=== PATIENT | male | born 1980 | race Two or more races ===

== ENCOUNTER → 2022-10-28 08:49 | Outpatient (BNVA) | payer SELFPAY | PROVIDERS: PCP Pediatrics; Visit Provider Physician Assistant Medical | DX: Z02.79 Encounter for issue of other medical certificate (principal) ==

== ENCOUNTER 2023-02-06 03:52 | Emergency (ER) | payer SELFPAY ==
--- NOTE | ~2023-02-06 | XR_ITS ---
EXAMINATION: XR CHEST CLINICAL INFORMATION: Shortness of breath COMPARISON: None available. TECHNIQUE: Frontal view of the chest was obtained. FINDINGS: Diffuse bronchial wall thickening. Streaky opacities in the lower lungs bilaterally. No pleural effusion or pneumothorax. Normal heart size and pulmonary vascularity. No acute osseous abnormalities. XR/XR chest 1V IMPRESSION: * Diffuse bronchial wall thickening suggestive of bronchitis. * Streaky opacities in the lower lungs bilaterally could represent subsegmental atelectasis or infiltrate.
--- NOTE | 2023-02-06 03:57 | ECG_ITS ---
Test Reason : SOB/CHEST PAIN Blood Pressure : / mmHG Vent. Rate : 093 BPM Atrial Rate : 093 BPM P-R Int : 144 ms QRS Dur : 096 ms QT Int : 386 ms P-R-T Axes : 070 005 100 degrees QTc Int : 479 ms Normal sinus rhythm Possible Left atrial enlargement Minimal voltage criteria for LVH, may be normal variant ( [place] product ) Nonspecific T wave abnormality Prolonged QT Abnormal ECG No previous ECGs available Referred By: Generic ED Physician Electronically Signed By:TAMARA PACHECO MD
[2023-02-06 04:08] VITALS: BP 198/129; PULSE 93; RESP 19; TEMP 36.6; O2SAT 94; BMI 31.3
--- NOTE | 2023-02-06 04:11 | ED_ITS ---
HPI - SOB/Dyspnea General Chief Complaint: Dyspnea Stated Complaint: SoB, abd pain Time Seen by Provider: 02/06/23 04:09 Source: patient Mode of arrival: ambulatory Limitations: no limitations History of Present Illness HPI Narrative: Patient otherwise healthy been having cough wheezing for last 1 month, got worse in last 1 week tonight with patient fell pain in the left ribs while coughing. Patient does get this wheezing and itching of the face whenever he cuts some kind of trees. Feel chest tight no leg swelling or edema patient does have white coat hypertension but has not checked his blood pressure. On arrival patient's blood pressure was 198/129 with pulse rate of 93 Related Data Previous Rx's Medication Instructions Recorded albuterol sulfate 90 mcg/actuation 2 puff inhalation Q4-6H PRN 02/06/23 aerosol inhaler (ProAir HFA) shortness of breath or wheezing #8.5 grams cefuroxime axetil 500 mg tablet 500 mg PO BID #20 tabs 02/06/23 doxycycline hyclate 100 mg tablet 100 mg PO BID #20 tabs 02/06/23 lisinopril 20 mg tablet 20 mg PO DAILY #30 tabs 02/06/23 prednisone 20 mg tablet 40 mg PO DAILY #10 tabs 02/06/23 Allergies Allergy/AdvReac Type Severity Reaction Status Date / Time No Known Allergies Allergy Unverified 05/11/20 19:46 [No Known Allergies*] Review of Systems Review of Systems: Yes all other systems are reviewed and are negative [facility], [facility] Social History Social History Alcohol intake: current Smoked in Last 30 Days: Yes Use of substances other than those prescribed or required for medical reasons: No Advance Directives: No Advance Directives Information Provided: Yes Physical Exam Vital Signs: Vital Signs: Last Vital Signs Temp 98.3 F 02/06/23 06:16 Pulse 86 02/06/23 06:16 Resp 20 02/06/23 06:16 BP 184/108 H 02/06/23 06:16 Pulse Ox 93 02/06/23 06:16 O2 Del Method Room Air 02/06/23 06:16 BMI result Body Mass Index 31.3 Appearance: Alert. Oriented X3. No acute distress. Eyes: No pallor or icterus ENT: Pharynx normal. Oral Mucosa moist Neck: Normal inspection. Neck supple. CVS: Normal heart rate and rhythm. Pulses normal. Respiratory: No respiratory distress. Equal air entry bilateral, prolonged expiration with wheezing Abdomen: Soft and nontender. Bowel sounds are present, no mass palpable, no CVA tenderness Skin: Skin warm and dry. Normal skin color. Normal skin turgor. Extremities: No lower extremity edema. No calf tenderness Neuro: Oriented X 3. No motor deficit. Medications Administered Discontinued Medications Generic Name Dose Route Start Last Admin Trade Name Robertq PRN Reason Stop Dose Admin Albuterol Sulfate 4 puff 02/06/23 04:21 02/06/23 04:37 Albuterol Sulfate 90 Mcg 8 Gm Inhaler INHALE 02/06/23 04:22 4 puff ONCE ONE Administration Cefuroxime Axetil 500 mg 02/06/23 06:26 02/06/23 06:38 Cefuroxime Axetil 500 Mg Tablet PO 02/06/23 06:27 500 mg ONCE ONE Administration Doxycycline Monohydrate 100 mg 02/06/23 06:26 02/06/23 06:38 Doxycycline Monohydrate 100 Mg Capsule PO 02/06/23 06:27 100 mg ONCE ONE Administration Lisinopril 20 mg 02/06/23 06:37 02/06/23 06:41 Lisinopril 20 Mg Tablet PO 02/06/23 06:38 20 mg ONCE ONE Administration Protocol Prednisone 60 mg 02/06/23 06:26 02/06/23 06:38 Prednisone 20 Mg Tablet PO 02/06/23 06:27 60 mg ONCE ONE Administration Medical Decision Making Medical Decision Making [facility] Narrative: Patient with white coat hypertension possible has essential hypertension also has cardiogram showed LVH. Does have bronchitis likely allergic from trees. Give antibiotic prednisone blood pressure medication advised to follow with PCP Lab Data [facility] Lab Attestation statement: I reviewed the patient's lab results. 02/06/23 04:14 02/06/23 04:14 Labs: Lab Results 02/06/23 02/06/23 02/06/23 Range/Units 04:14 04:14 04:14 WBC 15.4 H (4.8-10.8) X10*3/uL RBC 6.01 H (4.60-5.80) X10*6/uL Hgb 15.6 (14.0-18.0) g/dl Hct 48.9 (42.0-52.0) % MCV 81.4 (80.0-98.0) fL MCH 26.0 L (27.0-33.0) pg MCHC 31.9 (31.0-36.0) g/dl RDW 13.4 (11.0-16.0) % Plt Count 282 (160-400) X10*3/uL MPV 9.5 (9.4-12.4) fL Immature Gran % (Auto) 0.3 (0.0-0.4) % Neut % (Auto) 77.2 H (45-73) % Lymph % (Auto) 14.9 L (20-40) % [place] % (Auto) 5.5 (2-11) % Eos % (Auto) 1.6 (0-4) % Baso % (Auto) 0.5 (0-2) % Lymph # (Auto) 2.3 (1.2-4.9) X10*3/uL [place] # (Auto) 0.8 (0.1-1.2) X10*3/uL Eos # (Auto) 0.2 (0.0-0.4) X10*3/uL Baso # (Auto) 0.1 (0.0-0.2) X10*3/uL Abs Immat Gran (auto) 0.05 H (0.00-0.03) X10*3/uL Absolute Neuts (auto) 11.9 H (2.0-8.3) x10*3/uL Absolute Nucleated RBC 0.000 (0.0-0.012) X10*3/uL Nucleated RBC % (auto) 0.0 (0.0-0.2) /100WBC Sodium 138 (135-145) mmol/L Potassium 4.3 (3.3-5.1) mmol/L Chloride 104 (96-108) mmol/L Carbon Dioxide 25 (22-29) mmol/L Anion Gap 13 (12-20) BUN 12 (9-16) mg/dL Creatinine 1.03 (0.5-1.4) mg/dL Estim Creat Clear Calc 98.3 Estimated GFR > 60 Random Glucose 120 H (60-115) mg/dL Calcium 9.4 (8.4-10.2) mg/dL Total Bilirubin 0.7 (0.0-1.0) mg/dL AST 20 (5-37) U/L ALT 19 (0-40) U/L Alkaline Phosphatase 107 (39-117) U/L Troponin I High Sens 4.3 (<3.5-35.0) ng/L B-Natriuretic Peptide (<100) pg/mL Total Protein 8.5 H (6.5-8.0) g/dL Albumin 4.5 (3.5-5.0) g/dL 02/06/23 Range/Units 04:14 WBC (4.8-10.8) X10*3/uL RBC (4.60-5.80) X10*6/uL Hgb (14.0-18.0) g/dl Hct (42.0-52.0) % MCV (80.0-98.0) fL MCH (27.0-33.0) pg MCHC (31.0-36.0) g/dl RDW (11.0-16.0) % Plt Count (160-400) X10*3/uL MPV (9.4-12.4) fL Immature Gran % (Auto) (0.0-0.4) % Neut % (Auto) (45-73) % Lymph % (Auto) (20-40) % [place] % (Auto) (2-11) % Eos % (Auto) (0-4) % Baso % (Auto) (0-2) % Lymph # (Auto) (1.2-4.9) X10*3/uL [place] # (Auto) (0.1-1.2) X10*3/uL Eos # (Auto) (0.0-0.4) X10*3/uL Baso # (Auto) (0.0-0.2) X10*3/uL Abs Immat Gran (auto) (0.00-0.03) X10*3/uL Absolute Neuts (auto) (2.0-8.3) x10*3/uL Absolute Nucleated RBC (0.0-0.012) X10*3/uL Nucleated RBC % (auto) (0.0-0.2) /100WBC Sodium (135-145) mmol/L Potassium (3.3-5.1) mmol/L Chloride (96-108) mmol/L Carbon Dioxide (22-29) mmol/L Anion Gap (12-20) BUN (9-16) mg/dL Creatinine (0.5-1.4) mg/dL Estim Creat Clear Calc Estimated GFR Random Glucose (60-115) mg/dL Calcium (8.4-10.2) mg/dL Total Bilirubin (0.0-1.0) mg/dL AST (5-37) U/L ALT (0-40) U/L Alkaline Phosphatase (39-117) U/L Troponin I High Sens (<3.5-35.0) ng/L B-Natriuretic Peptide 143 H (<100) pg/mL Total Protein (6.5-8.0) g/dL Albumin (3.5-5.0) g/dL Discharge Plan Discharge Clinical Impression: Acute bronchitis, Hypertension Patient Disposition: Home, Self-Care Instructions: Acute Bronchitis (ED), Hypertension (ED) Additional Instructions: Stop smoking You might be allergic to some of the trees Keep a distance/precautions when you are near those trees Prednisone, antibiotic and inhaler as prescribed Decrease salt and caffeine intake Medication as prescribed for high blood pressure normal blood pressure should be less than 135/85 I checked the blood pressure before you take the medicine in the morning and before you go to bed Follow with PCP Prescriptions: New prednisone 20 mg tablet 40 mg PO DAILY Qty: 10 0RF cefuroxime axetil 500 mg tablet 500 mg PO BID Qty: 20 0RF albuterol sulfate [ProAir HFA] 90 mcg/actuation HFA aerosol inhaler 2 puff inhalation Q4-6H PRN (Reason: shortness of breath or wheezing) Qty: 8.5 0RF doxycycline hyclate 100 mg tablet 100 mg PO BID Qty: 20 0RF lisinopril 20 mg tablet 20 mg PO DAILY Qty: 30 0RF
[2023-02-06 04:18] LABS: Basophils Absolute Auto 0.1 X10*3/uL (0.0-0.2); Basophils Percent Auto 0.5 % (0-2); Eosinophils Absolute Auto 0.2 X10*3/uL (0.0-0.4); Eosinophils Percent Auto 1.6 % (0-4); Hematocrit 48.9 % (42.0-52.0); Hemoglobin 15.6 g/dl (14.0-18.0); Imm Gran Abs Auto 0.05 X10*3/uL (0.00-0.03); Imm Gran Pct Auto 0.3 % (0.0-0.4); Lymphocytes Absolute Auto 2.3 X10*3/uL (1.2-4.9); Lymphocytes Percent Auto 14.9 % (20-40); MANUAL DIFF FLAG NO; Mean Corpuscular HGB Conc 31.9 g/dl (31.0-36.0); Mean Corpuscular Volume 81.4 fL (80.0-98.0); Mean Platelet Volume 9.5 fL (9.4-12.4); Monocytes Absolute Auto 0.8 X10*3/uL (0.1-1.2); Monocytes Percent Auto 5.5 % (2-11); Neutrophils Absolute Auto 11.9 x10*3/uL (2.0-8.3); Neutrophils Percent Auto 77.2 % (45-73); Platelet Count 282 X10*3/uL (160-400); Red Blood Count 6.01 X10*6/uL (4.60-5.80); Red Cell Distribution Width 13.4 % (11.0-16.0); White Blood Count 15.4 X10*3/uL (4.8-10.8)
[2023-02-06 04:32] LABS: Alanine Aminotransferase 19 U/L (0-40); Albumin Level 4.5 g/dL (3.5-5.0); Alkaline Phosphatase 107 U/L (39-117); Anion Gap 13 (12-20); Aspartate Amino Transferase 20 U/L (5-37); Bilirubin Total 0.7 mg/dL (0.0-1.0); Blood Urea Nitrogen 12 mg/dL (9-16); Calcium 9.4 mg/dL (8.4-10.2); Carbon Dioxide 25 mmol/L (22-29); Chloride 104 mmol/L (96-108); Creatinine Clr Calc Pharmacy 98.3; Estimated Glomerular Filt Rate > 60; Glucose Random 120 mg/dL (60-115); Potassium 4.3 mmol/L (3.3-5.1); Sodium 138 mmol/L (135-145); Total Protein 8.5 g/dL (6.5-8.0)
[2023-02-06 04:37] LABS: Troponin-I High Sensitivity 4.3 ng/L (<3.5-35.0)
[2023-02-06] MEDS: Albuterol Sulfate 90 MCG 8 GM INHALER 4 PUFF INHALE (04:37)
[2023-02-06 04:46] LABS: B Type Natriuretic Peptide 143 pg/mL (<100)
--- NOTE | 2023-02-06 05:15 | PC.NURSE ---
pt reassessd after the adminstration of medications, reported mild sob
[2023-02-06 06:16] VITALS: BP 184/108; PULSE 86; RESP 20; TEMP 36.8; O2SAT 93
[2023-02-06] MEDS: Doxycycline Monohydrate 100 MG CAPSULE PO (06:38)
[2023-02-06] MEDS: predniSONE 20 MG TABLET 60 MG PO (06:38)
[2023-02-06] MEDS: lisinopriL 20 MG TABLET PO (06:41)
== END 2023-02-06 07:34 | disposition home or self-care (01) ==
PROVIDERS: Emergency Provider Internal Medicine
DX: J40 Bronchitis, not specified as acute or chronic (principal); R07.89 Other chest pain; R06.02 Shortness of breath; I10 Essential (primary) hypertension; Z79.899 Other long term (current) drug therapy
CPT/HCPCS: 36415; 71045; 80053; 83880; 84484; 85025; 93005; 99284

== ENCOUNTER 2023-07-27 23:25 | Emergency (ER) | payer OTHER, SELFPAY ==
--- NOTE | 2023-07-27 | ECG_ITS ---
Test Reason : LEFT SIDED PAIN Blood Pressure : / mmHG Vent. Rate : 091 BPM Atrial Rate : 091 BPM P-R Int : 168 ms QRS Dur : 098 ms QT Int : 384 ms P-R-T Axes : 067 012 110 degrees QTc Int : 472 ms Normal sinus rhythm Possible Left atrial enlargement Minimal voltage criteria for LVH, may be normal variant ( [place] product ) T wave abnormality, consider lateral ischemia Prolonged QT Abnormal ECG When compared with ECG of 06-FEB-2023 03:58, No significant change was found Referred By: Generic ED Physician Electronically Signed By:ADRYAN MALCOLM
[2023-07-27 23:37] VITALS: BP 191/112; PULSE 98; RESP 16; TEMP 36.7; O2SAT 96; BMI 30.7
[2023-07-28 02:01] VITALS: BP 158/87; PULSE 89; RESP 16; O2SAT 96
[2023-07-28 02:20] LABS: MANUAL DIFF FLAG NO
[2023-07-28 02:22] LABS: Basophils Absolute Auto 0.1 X10*3/uL (0.0-0.2); Basophils Percent Auto 0.6 % (0-2); Eosinophils Absolute Auto 0.2 X10*3/uL (0.0-0.4); Eosinophils Percent Auto 1.5 % (0-4); Hematocrit 42.8 % (42.0-52.0); Hemoglobin 14.2 g/dl (14.0-18.0); Imm Gran Abs Auto 0.03 X10*3/uL (0.00-0.03); Imm Gran Pct Auto 0.2 % (0.0-0.4); Lymphocytes Absolute Auto 2.5 X10*3/uL (1.2-4.9); Lymphocytes Percent Auto 20.4 % (20-40); Mean Corpuscular HGB Conc 33.2 g/dl (31.0-36.0); Mean Corpuscular Hemoglobin 26.6 pg (27.0-33.0); Mean Corpuscular Volume 80.1 fL (80.0-98.0); Monocytes Absolute Auto 0.8 X10*3/uL (0.1-1.2); Monocytes Percent Auto 6.2 % (2-11); Neutrophils Absolute Auto 8.8 x10*3/uL (2.0-8.3); Neutrophils Percent Auto 71.1 % (45-73); Platelet Count 253 X10*3/uL (160-400); Red Blood Count 5.34 X10*6/uL (4.60-5.80); Red Cell Distribution Width 13.5 % (11.0-16.0); White Blood Count 12.4 X10*3/uL (4.8-10.8)
[2023-07-28 02:38] LABS: Alanine Aminotransferase 17 U/L (0-40); Albumin Level 4.2 g/dL (3.5-5.0); Alkaline Phosphatase 102 U/L (39-117); Anion Gap 13 (12-20); Aspartate Amino Transferase 21 U/L (5-37); Bilirubin Total 0.4 mg/dL (0.0-1.0); Blood Urea Nitrogen 11 mg/dL (9-16); Calcium 9.4 mg/dL (8.4-10.2); Carbon Dioxide 25 mmol/L (22-29); Chloride 105 mmol/L (96-108); Creatinine Clr Calc Pharmacy 110.2; Estimated Glomerular Filt Rate > 60; Glucose Random 126 mg/dL (60-115); Potassium 3.8 mmol/L (3.3-5.1); Sodium 139 mmol/L (135-145); Total Protein 8.1 g/dL (6.5-8.0)
--- NOTE | 2023-07-28 02:41 | ED.GENADULT ---
HPI - General Adult General Chief complaint: General Medical Stated complaint: High BP Time Seen by Provider: 07/28/23 02:41 History of Present Illness HPI narrative: The patient is a 42-year-old male who says that he was seen at the emergency room here several months ago and was found to have high blood pressure. He was prescribed lisinopril 20 mg daily. This seemed to help his blood pressure. Apparently he did well enough that he felt he could go off lisinopril. At the same time he stop smoking and he thought that that might help his high blood pressure altogether. He stopped taking lisinopril after about 2 weeks. Therefore he has not been on any blood pressure medications for the last couple of months. He has not checked his blood pressure for over a month. Tonight he had a vague sense that he felt unwell and checked his blood pressure and it was something like 200/100. He got concerned about this high blood pressure and came to the emergency room. No chest pain or shortness of breath. No headache. No other symptoms. Related Data Previous Rx's Medication Instructions Recorded albuterol sulfate 90 mcg/actuation 2 puff inhalation Q4-6H PRN 02/06/23 aerosol inhaler (ProAir HFA) shortness of breath or wheezing #8.5 grams cefuroxime axetil 500 mg tablet 500 mg PO BID #20 tabs 02/06/23 doxycycline hyclate 100 mg tablet 100 mg PO BID #20 tabs 02/06/23 lisinopril 20 mg tablet 20 mg PO DAILY #30 tabs 02/06/23 prednisone 20 mg tablet 40 mg (2 x 20 mg) PO DAILY #10 tabs 02/06/23 lisinopril 20 mg tablet 20 mg PO DAILY #30 tabs 07/28/23 Allergies Allergy/AdvReac Type Severity Reaction Status Date / Time No Known Allergies Allergy Unverified 05/11/20 19:46 [No Known Allergies*] Review of Systems Review of Systems: Yes all other systems are reviewed and are negative [facility] Social History Social History Alcohol intake: current Smoked in Last 30 Days: No Advance Directives: No Advance Directives Information Provided: No Physical Exam ED Vital Signs: Vital Signs - 24 hr 07/27/23 23:37 07/28/23 02:01 Temperature 98.0 F Pulse Rate 98 89 Respiratory Rate 16 16 Blood Pressure 191/112 H 158/87 H Pulse Oximetry 96 96 Oxygen Delivery Method Room Air Room Air BMI result Body Mass Index 30.7 Const Other: The patient is very vigorous looking 42-year-old who does not seem in acute distress. HENMT Other: Face is symmetrical. Tongue is midline. Mucous membranes moist. Eyes Other: Pupils are round equal, conjunctivae are clear, extraocular movements intact Neck Other: No JVD Resp Other: Lungs clear bilaterally Cardio Other: Regular rate and rhythm without murmur GI Other: Abdomen is soft nontender Skin Other: Skin is dry and unremarkable Neuro Other: Patient is awake and alert and appropriate. Speech is clear. Face symmetrical. Moving all 4 extremities normally. Patient is neurologically intact. Extrem Other: No peripheral edema. Medical Decision Making Medical Decision Making [facility] Narrative: The patient is a very pleasant 42-year-old who is here because of high blood pressure readings. He had been seen in the emergency room here a few months ago and was found to have high blood pressure was prescribed lisinopril but he stopped taking this medication a couple of weeks later because he thought his blood pressure was doing better. He has not followed up with a PCP. He does not have insurance currently. He seems to be in a bit of denial about having possible hypertension as a long-term condition. Clinically the patient looks entirely well. The patient had an EKG that I think shows something of an LVH pattern. The EKG is similar to his EKG earlier this year. Overall the patient looked tired he well I do not think he requires further testing. He was counseled that he really should take antihypertensive medication however. He still has about 2 weeks of lisinopril left in a pill bottle he brought with him that had been prescribed at his last ER visit several months ago. Have sent another prescription for it the same dose of lisinopril, 20 mg daily. He is strongly encouraged to continue daily lisinopril. He is additionally advised to work on getting health insurance and a PCP for ongoing care. Lab Data 07/28/23 02:11 07/28/23 02:11 Labs: Lab Results 07/28/23 Range/Units 02:11 WBC 12.4 H (4.8-10.8) X10*3/uL RBC 5.34 (4.60-5.80) X10*6/uL Hgb 14.2 (14.0-18.0) g/dl Hct 42.8 (42.0-52.0) % MCV 80.1 (80.0-98.0) fL MCH 26.6 L (27.0-33.0) pg MCHC 33.2 (31.0-36.0) g/dl RDW 13.5 (11.0-16.0) % Plt Count 253 (160-400) X10*3/uL MPV 10.0 (9.4-12.4) fL Immature Gran % (Auto) 0.2 (0.0-0.4) % Neut % (Auto) 71.1 (45-73) % Lymph % (Auto) 20.4 (20-40) % [place] % (Auto) 6.2 (2-11) % Eos % (Auto) 1.5 (0-4) % Baso % (Auto) 0.6 (0-2) % Lymph # (Auto) 2.5 (1.2-4.9) X10*3/uL [place] # (Auto) 0.8 (0.1-1.2) X10*3/uL Eos # (Auto) 0.2 (0.0-0.4) X10*3/uL Baso # (Auto) 0.1 (0.0-0.2) X10*3/uL Abs Immat Gran (auto) 0.03 (0.00-0.03) X10*3/uL Absolute Neuts (auto) 8.8 H (2.0-8.3) x10*3/uL Absolute Nucleated RBC 0.000 (0.0-0.012) X10*3/uL Nucleated RBC % (auto) 0.0 (0.0-0.2) /100WBC Sodium 139 (135-145) mmol/L Potassium 3.8 (3.3-5.1) mmol/L Chloride 105 (96-108) mmol/L Carbon Dioxide 25 (22-29) mmol/L Anion Gap 13 (12-20) BUN 11 (9-16) mg/dL Creatinine 0.88 (0.5-1.4) mg/dL Estim Creat Clear Calc 110.2 Estimated GFR > 60 Random Glucose 126 H (60-115) mg/dL Calcium 9.4 (8.4-10.2) mg/dL Total Bilirubin 0.4 (0.0-1.0) mg/dL AST 21 (5-37) U/L ALT 17 (0-40) U/L Alkaline Phosphatase 102 (39-117) U/L Troponin I High Sens 4.1 (<3.5-35.0) ng/L Total Protein 8.1 H (6.5-8.0) g/dL Albumin 4.2 (3.5-5.0) g/dL Discharge Plan Discharge Clinical Impression: Hypertension Patient Disposition: Home, Self-Care Instructions: Hypertension (ED) Additional Instructions: I suspect that you have the underlying condition of high blood pressure, also known as hypertension. I think you will likely need to take blood pressure medication every day for the indefinite future. Please feel free to make other changes to your health including stopping soda is another foods which may be unhealthy. However please continue to take the blood pressure medication daily until you follow-up with regular doctor who can keep an eye on it long-term. Therefore please continue your efforts to get health insurance and a new primary care provider. Return to the emergency room if significantly worse. Prescriptions: New lisinopril 20 mg tablet 20 mg PO DAILY Qty: 30 0RF No Action prednisone 20 mg tablet 40 mg PO DAILY Qty: 10 0RF cefuroxime axetil 500 mg tablet 500 mg PO BID Qty: 20 0RF albuterol sulfate [ProAir HFA] 90 mcg/actuation HFA aerosol inhaler 2 puff inhalation Q4-6H PRN (Reason: shortness of breath or wheezing) Qty: 8.5 0RF doxycycline hyclate 100 mg tablet 100 mg PO BID Qty: 20 0RF lisinopril 20 mg tablet 20 mg PO DAILY Qty: 30 0RF Interventions: ED Discharge Assessment Last Done: 07/28/23 03:06 Discharge Date/Time: 07/28/23 03:07
[2023-07-28 02:42] LABS: Troponin-I High Sensitivity 4.1 ng/L (<3.5-35.0)
== END 2023-07-28 03:07 | disposition home or self-care (01) ==
PROVIDERS: Emergency Provider Emergency Medicine
DX: I16.0 Hypertensive urgency (principal); R07.89 Other chest pain; Z79.899 Other long term (current) drug therapy
CPT/HCPCS: 36415; 80053; 84484; 85025; 93005; 99283; 99284

== ENCOUNTER → 2023-07-27 23:59 | Outpatient (BNV) | payer SELFPAY | PROVIDERS: Emergency Provider Emergency Medicine; Visit Provider Internal Medicine | DX: I45.81 Long QT syndrome (principal) | CPT/HCPCS: 93010 ==